=== PATIENT | female | born 1950 | race Caucasian/White ===

== ENCOUNTER 2016-11-06 11:31 | Emergency (ER) | payer MEDICARE, OTHER ==
--- NOTE | 2016-11-06 11:53 | ER Document Report ---
ED Medical Screen (RME) - General Stated Complaint: ABDOMINAL PAIN, VAGINAL DISCHARGE Mode of Arrival: Ambulatory Information source: Patient Notes: 65 y/o F presents to ED c/o intermittently persistent lower abd pain over the last week. Reports last normal BM was > 1 week ago. Denies fever or blood in stool. I have greeted and performed a rapid initial assessment of this patient. A comprehensive ED assessment and evaluation of the patient, analysis of test results and completion of the medical decision making process will be conducted by additional ED providers. - Related Data Allergies/Adverse Reactions: No Known Allergies Allergy (Unverified 11/06/16 11:48) Physical Exam - General General appearance: Appears well, Alert In distress: None - Respiratory Respiratory status: No respiratory distress - Cardiovascular Rhythm: Regular Pulses: Normal: Radial
[2016-11-06 12:13] LABS: ABSOLUTE BASOPHILS # (AUTO) 0.1 10^3/uL (0.0-0.2); ABSOLUTE EOSINOPHILS # (AUTO) 0.1 10^3/uL (0.0-0.6); ABSOLUTE LYMPHOCYTES (AUTO) 1.1 10^3/uL (0.5-4.7); ABSOLUTE MONOCYTES (AUTO) 0.9 10^3/uL (0.1-1.4); ABSOLUTE NEUT (AUTO) 9.1 10^3/uL (1.7-8.2); BASOPHILS % (AUTO) 0.7 % (0-2); EOSINOPHILS % (AUTO) 0.5 % (0-6); HEMATOCRIT 40.7 % (36.0-47.0); HEMOGLOBIN 13.5 g/dL (12.0-15.5); HGB HCT DIFFERENCE -0.2; LYMPHOCYTES % (AUTO) 9.9 % (13-45); MEAN CORPUSCULAR HEMOGLOBIN 28.2 pg (27.0-33.4); MEAN CORPUSCULAR HGB CONC 33.2 g/dL (32.0-36.0); MEAN CORPUSCULAR VOLUME 85 fl (80-97); MONOCYTES % (AUTO) 8.4 % (3-13); RED BLOOD COUNT 4.79 10^6/uL (3.72-5.28); RED CELL DISTRIBUTION WIDTH 13.2 % (11.5-14.0); SEGMENTED NEUTROPHILS % (AUTO) 80.5 % (42-78); WHITE BLOOD COUNT 11.3 10^3/uL (4.0-10.5)
[2016-11-06 12:23] LABS: APPEARANCE,URINE CLEAR; BILIRUBIN,URINE NEGATIVE (NEGATIVE); GLUCOSE, URINE NEGATIVE (NEGATIVE); KETONES,URINE NEGATIVE (NEGATIVE); LEUKOCYTE ESTERASE,URINE NEGATIVE (NEGATIVE); NITRITE,URINE NEGATIVE (NEGATIVE); PROTEIN,URINE NEGATIVE (NEGATIVE); URINE SPECIFIC GRAVITY 1.002; UROBILINOGEN,URINE NEGATIVE mg/dL (<2.0)
--- NOTE | 2016-11-06 12:29 | ER Document Report ---
ED GI/ - General Chief Complaint: Abdominal Pain Stated Complaint: ABDOMINAL PAIN, VAGINAL DISCHARGE Time seen by provider: 12:29 Mode of Arrival: Ambulatory Information source: Patient Notes: 65 yo female with gradual onset LLQ abdominal pain that is getting worse, also passing mucous when trying to have bm, no blood or diarrhea. No fever or chills. No N/V. No rash. No dysuria. No hx kidney stones. Hx diverticulosis on colonscopy. TRAVEL OUTSIDE OF THE [place] IN LAST 30 DAYS: No - Related Data Allergies/Adverse Reactions: No Known Allergies Allergy (Unverified 11/06/16 11:48) Past Medical History - General Information source: Patient - Social History Smoking Status: Never Smoker Chew tobacco use (# tins/day): No Frequency of alcohol use: None Drug Abuse: None Lives with: Family Family History: Reviewed & Not Pertinent Patient has suicidal ideation: No Patient has homicidal ideation: No - Past Medical History Cardiac Medical History: Reports: Hx Hypertension Renal/ Medical History: Denies: Hx Peritoneal Dialysis GI Medical History: Reports: Other - diverticulosis on colonscopy Surgical Hx: Negative Review of Systems - Review of Systems Constitutional: No symptoms reported EENT: No symptoms reported Cardiovascular: No symptoms reported Respiratory: No symptoms reported Gastrointestinal: See HPI Genitourinary: No symptoms reported Female Genitourinary: No symptoms reported Musculoskeletal: No symptoms reported Skin: No symptoms reported Hematologic/Lymphatic: No symptoms reported Neurological/Psychological: No symptoms reported Physical Exam - Vital signs Vitals: Temp Pulse Resp BP Pulse Ox 97.8 F 74 18 204/92 H 98 11/06/16 11:50 11/06/16 11:50 11/06/16 11:50 11/06/16 11:50 11/06/16 11:50 Interpretation: Normal - General General appearance: Appears well, Alert In distress: None - HEENT Head: Normocephalic, Atraumatic Eyes: Normal Pupils: PERRL Neck: Supple - Respiratory Respiratory status: No respiratory distress Chest status: Nontender Breath sounds: Normal Chest palpation: Normal - Cardiovascular Rhythm: Regular Heart sounds: Normal auscultation Murmur: No - Abdominal Inspection: Normal Distension: No distension Bowel sounds: Normal Tenderness: Tender - LLQ Organomegaly: No organomegaly - Back Back: Normal, Nontender. No: CVA tenderness - Extremities General upper extremity: Normal inspection, Nontender, Normal color, Normal ROM , Normal temperature General lower extremity: Normal inspection, Nontender, Normal color, Normal ROM , Normal temperature, Normal weight bearing. No: Lit's sign - Neurological Neuro grossly intact: Yes Cognition: Normal Orientation: AAOx4 [place] Coma Scale Eye Opening: Spontaneous [place] Coma Scale Verbal: Oriented Mel Coma Scale Motor: Obeys Commands Mel Coma Scale Total: 15 Speech: Normal Motor strength normal: LUE, RUE, LLE, RLE Sensory: Normal - Psychological Associated symptoms: Normal affect, Normal mood - Skin Skin Temperature: Warm Skin Moisture: Dry Skin Color: Normal Skin irregularity: negative: Rash Course - Re-evaluation Re-evalutation: 11/06/16 15:58 I have consulted with the supervisory physician per [facility] Guidelines., dr. sweeney for CT scan. 11/06/16 16:13 blood pressure systolic 170 but she will take her htn rx when she gets home, temp 99.3, pulse 73. the CT showed distal sigmoid diverticulitis without abscess and will start her on Cipro and Flagyl. She does not want pain medication offered. Urine 2+ bacteria, 1 wbc, culture added. White count 11.3 no shift. Stool hem negative. chemistry normal. Pt feels better. 11/07/16 12:51 11/07/16 12:52 - Vital Signs Vital signs: Temp Pulse Resp BP Pulse Ox 99.3 F 73 17 170/72 H 96 11/06/16 16:13 11/06/16 16:13 11/06/16 16:13 11/06/16 16:13 11/06/16 16:13 - Laboratory Result Diagrams: 11/06/16 12:00 11/06/16 12:00 Laboratory results interpreted by me: 11/06/16 11/06/16 12:00 12:00 WBC 11.3 H Seg Neutrophils % 80.5 H Lymphocytes % 9.9 L Absolute Neutrophils 9.1 H Creatinine 0.50 L Discharge - Discharge Clinical Impression: Diverticulitis Qualifiers: Diverticulitis site: large intestine Diverticulitis bleeding: without bleeding Diverticulitis complication: without perforation or abscess Qualified Code(s): K57.32 - Diverticulitis of large intestine without perforation or abscess without bleeding Condition: Good Disposition: HOME, SELF-CARE Instructions: Ciprofloxacin ([facility]), Diverticulitis ([facility]), Metronidazole ([facility]) Additional Instructions: to er if worse plenty of fluid No alcohol with the metronidazole Prescriptions: Ciprofloxacin HCl [Cipro 750 mg Tablet] 750 mg PO BID #20 tablet Metronidazole 500 mg PO QID #20 tablet Referrals: CHANEL BARNETT MD [Primary Care Provider] - 11/10/16
[2016-11-06 13:21] LABS: ALANINE AMINOTRANSFERASE 36 U/L (9-52); ALBUMIN 4.1 g/dL (3.5-5.0); ALKALINE PHOSPHATASE 86 U/L (38-126); ANION GAP 12 (5-19); ASPARTATE AMINO TRANSFERASE 33 U/L (14-36); BLOOD UREA NITROGEN 16 mg/dL (7-20); CALCIUM 9.5 mg/dL (8.4-10.2); CARBON DIOXIDE 29 mmol/L (22-30); CHLORIDE 99 mmol/L (98-107); GLUCOSE 98 mg/dL (75-110); LIPASE 23.8 U/L (23-300); POTASSIUM 3.7 mmol/L (3.6-5.0); SODIUM 140.3 mmol/L (137-145); TOTAL PROTEIN 6.8 g/dL (6.3-8.2)
[2016-11-06] MEDS ORDERED: METRONIDAZOLE 500 MG TABLET PO ONE (15:44)
[2016-11-06] MEDS ORDERED: CIPROFLOXACIN HCL 500 MG TABLET PO ONE (15:44)
[2016-11-06] MEDS ORDERED: CIPROFLOXACIN HCL 750 MG TABLET PO ONE (15:51)
[2016-11-06 16:15] VITALS: BP 170/72
== END 2016-11-06 16:15 | disposition home or self-care (01) ==
LOC: ER 11:31
DX: K57.32 Diverticulitis of large intestine without perforation or abscess without bleeding (principal); R10.32 Left lower quadrant pain; I10 Essential (primary) hypertension; Z79.899 Other long term (current) drug therapy
CPT/HCPCS: 99284; 36415; 87086; 83690; 85025; 82272; 80053; 81001; 74177; A9270 ×2; J3490

== ENCOUNTER 2018-12-18 21:30 | Emergency (ER) | payer MEDICARE, OTHER ==
[2018-12-18] MEDS ORDERED: ASPIRIN 81 MG TABLET, CHEWABLE PO ONE (21:33)
--- NOTE | 2018-12-18 21:44 | ER Document Report ---
ED General - General Stated Complaint: HEART PROBLEM Time Seen by Provider: 12/18/18 21:43 Primary Care Provider: DEDE LAWTON MD [ASSOCIATE] - Follow up in 3-5 days Notes: Patient is a 68-year-old female with atrial fibrillation on Eliquis that presents to the emergency department for chief complaint of palpitations. Patient states that the symptoms started earlier this evening, and she was hoping they would go away, but they persisted so she decided to call the ambulance. She has had an episode like this in the past, where she was treated with Cardizem and it improved, EMS did administer 25 mg of IV Cardizem, but she was still tachycardic afterwards, she denies having any associated chest pain, shortness of breath, difficulty breathing, nausea, vomiting or diaphoresis. She is currently taking metoprolol and as mentioned she is on Eliquis as well. No other complaints at this time. She does report recently she had an outpatient potassium 3.6, does not recall any other lab issues. Past Medical History: Atrial fibrillation, hypertension Past Surgical History: Total knee arthroplasty, cholecystectomy, hysterectomy Social History: Admits to occasional alcohol use, denies tobacco or illicit drug use. Family History: Reviewed and noncontributory for presenting illness Allergies: Reviewed, see documented allergy list. REVIEW OF SYSTEMS: Other than noted above, the 12 point review of systems was reviewed with the patient and were negative, all pertinent findings are included in the HPI. PHYSICAL EXAMINATION: Vital signs reviewed, nursing noted reviewed. GENERAL: Obese female, in mild distress, appears uncomfortable but not complaining of any pain HEAD: Atraumatic, normocephalic. EYES: Eyes appear normal, extraocular movements intact, sclera anicteric, conjunctiva are normal. ENT: nares patent, oropharynx clear without exudates. Moist mucous membranes. NECK: Normal range of motion, supple without lymphadenopathy LUNGS: Breath sounds clear to auscultation bilaterally and equal. No wheezes rales or rhonchi. HEART: Heart rate tachycardic, irregular rhythm, no audible murmurs ABDOMEN: Soft, nontender, normoactive bowel sounds. No rebound, guarding, or rigidity. No masses appreciated. EXTREMITIES: Nontender, good range of motion, trace bilateral lower extremity edema NEUROLOGICAL: No focal neurological deficits. Moves all extremities spontaneously Motor and sensory grossly intact on exam. PSYCH: Normal mood, normal affect. SKIN: Warm, Dry, normal turgor, no rashes or lesions noted on exposed skin TRAVEL OUTSIDE OF THE [place] IN LAST 30 DAYS: No - Related Data Allergies/Adverse Reactions: No Known Allergies Allergy (Unverified 11/06/16 11:48) Past Medical History - Social History Smoking Status: Never Smoker Family History: Reviewed & Not Pertinent - Past Medical History Cardiac Medical History: Reports: Hx Hypercholesterolemia, Hx Hypertension Renal/ Medical History: Denies: Hx Peritoneal Dialysis Past Surgical History: Reports: Hx Appendectomy, Hx Cholecystectomy, Hx Hysterectomy, Hx Orthopedic Surgery, Hx Tonsillectomy - Immunizations Hx Diphtheria, Pertussis, Tetanus Vaccination: Yes Physical Exam - Vital signs Vitals: Resp Pulse Ox 16 97 12/18/18 21:45 12/18/18 21:45 Course - Re-evaluation Re-evalutation: Patient seen and examined vital signs reviewed. Laboratory data and imaging were ordered as appropriate for the patient's presenting symptoms and complaint, with consideration of any critical or life threatening conditions that may be associated with their obtained history and exam as noted above. 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 The patient was re-evaluated and was stable and improved Evaluation was most consistent with atrial fibrillation with rapid ventricular response, hypokalemia Results were discussed with the patient at this point, after careful conside ration I feel that that patient can be discharged from the emergency department, the patient was educated treatments and reasons to return to the emergency department based on their presumed diagnosis as noted above, they were advised to followup with a primary care physician in 2-3 days. Patient was agreeable to plan of care. *Note is created using voice recognition software and may contain spelling, syntax or grammatical errors. Laboratory 12/18/18 12/18/18 12/18/18 22:00 22:00 22:00 WBC 8.1 RBC 5.02 Hgb 14.6 Hct 42.6 MCV 85 MCH 29.2 MCHC 34.4 RDW 13.1 Plt Count 207 Seg Neutrophils % 65.3 Lymphocytes % 25.3 Monocytes % 7.4 Eosinophils % 1.1 Basophils % 0.9 Absolute Neutrophils 5.3 Absolute Lymphocytes 2.1 Absolute Monocytes 0.6 Absolute Eosinophils 0.1 Absolute Basophils 0.1 Sodium 138.9 Potassium 3.4 L Chloride 99 Carbon Dioxide 26 Anion Gap 14 BUN 22 H Creatinine 0.57 Est GFR ( Amer) > 60 Est GFR (Non-Af Amer) > 60 Glucose 122 H Calcium 10.4 H Total Bilirubin 0.5 Direct Bilirubin 0.3 Neonat Total Bilirubin Not Reportable Neonat Direct Bilirubin Not Reportable Neonat Indirect Bili Not Reportable AST 34 ALT 23 Alkaline Phosphatase 88 Troponin I < 0.012 Total Protein 7.5 Albumin 4.7 Chest X-Ray 12/18/18 21:33 IMPRESSION: No acute findings. No focal lung consolidation. - Vital Signs Vital signs: Temp Pulse Resp BP Pulse Ox 98.7 F 66 16 141/72 H 98 12/18/18 21:52 12/18/18 22:49 12/18/18 22:02 12/18/18 22:02 12/18/18 21:50 - Laboratory Result Diagrams: 12/18/18 22:00 12/18/18 22:00 Laboratory results interpreted by me: 12/18/18 22:00 Potassium 3.4 L BUN 22 H Glucose 122 H Calcium 10.4 H - EKG Interpretation by Me Additional EKG results interpreted by me: EKG #1 performed at 2142 demonstrates atrial fibrillation with rapid ventricular response with a ventricular rate of 137 bpm, normal axis, QTC 471 ms, there is rate dependent ST depressions in leads V3 through V6, and leads II, III and aVF EKG #2 performed at 2235 demonstrates normal sinus rhythm with a ventricular rate of 67 bpm, normal axis, normal intervals, no evidence of acute ischemia in this EKG, this is compared with her prior EKG performed when she was in atrial fibrillation today. Critical Care Note - Critical Care Note Total time excluding time spent on procedures (mins): 35 Comments: Critical care time 35 minutes exclusive from separate billable procedures for a patient requiring complex medical decision making, and high potential for clinical deterioration. In a patient with atrial fibrillation with rapid ventri cular response requiring IV Cardizem for treatment. Time spent obtaining history from patient or surrogate, discussions with consultants, development of treatment plan with patient or surrogate, evaluation of patient's response to treatment, examination of patient, ordering and performing treatments and interventions, ordering and review of laboratory studies, re-evaluation of patient's condition, ordering and review of radiographic studies and review of old charts Discharge - Discharge Clinical Impression: Atrial fibrillation with rapid ventricular response, Hypokalemia Condition: Stable Disposition: HOME, SELF-CARE Instructions: Atrial Fibrillation ([facility]) Additional Instructions: Please follow-up with your primary care physician, call for an appointment on Thursday, continue to take your previously prescribed medications, and discussed with your primary care physician the potassium supplement you are taking. If you develop any further symptoms or concerns, do not hesitate to return to the emergency department. Referrals: DEDE LAWTON MD [ASSOCIATE] - Follow up in 3-5 days
[2018-12-18] MEDS ORDERED: DILTIAZEM HCL/D5W 125 MG/125 ML RTUINJ IV PRN (21:47)
[2018-12-18 22:12] VITALS: BP 141/72
[2018-12-18 22:16] LABS: ABSOLUTE BASOPHILS # (AUTO) 0.1 10^3/uL (0.0-0.2); ABSOLUTE EOSINOPHILS # (AUTO) 0.1 10^3/uL (0.0-0.6); ABSOLUTE LYMPHOCYTES (AUTO) 2.1 10^3/uL (0.5-4.7); ABSOLUTE MONOCYTES (AUTO) 0.6 10^3/uL (0.1-1.4); ABSOLUTE NEUT (AUTO) 5.3 10^3/uL (1.7-8.2); BASOPHILS % (AUTO) 0.9 % (0-2); EOSINOPHILS % (AUTO) 1.1 % (0-6); HEMATOCRIT 42.6 % (36.0-47.0); HEMOGLOBIN 14.6 g/dL (12.0-15.5); LYMPHOCYTES % (AUTO) 25.3 % (13-45); MEAN CORPUSCULAR HEMOGLOBIN 29.2 pg (27.0-33.4); MEAN CORPUSCULAR HGB CONC 34.4 g/dL (32.0-36.0); MEAN CORPUSCULAR VOLUME 85 fl (80-97); MONOCYTES % (AUTO) 7.4 % (3-13); PLATELET COUNT 207 10^3/uL (150-450); RED BLOOD COUNT 5.02 10^6/uL (3.72-5.28); RED CELL DISTRIBUTION WIDTH 13.1 % (11.5-14.0); SEGMENTED NEUTROPHILS % (AUTO) 65.3 % (42-78); TOTAL CELLS COUNTED % (AUTO) 100 %; WHITE BLOOD COUNT 8.1 10^3/uL (4.0-10.5)
[2018-12-18 22:31] LABS: ALANINE AMINOTRANSFERASE 23 U/L (9-52); ALBUMIN 4.7 g/dL (3.5-5.0); ALKALINE PHOSPHATASE 88 U/L (38-126); ANION GAP 14 (5-19); ASPARTATE AMINO TRANSFERASE 34 U/L (14-36); BILIRUBIN,DIRECT 0.3 mg/dL (0.0-0.4); BILIRUBIN,TOTAL 0.5 mg/dL (0.2-1.3); BLOOD UREA NITROGEN 22 mg/dL (7-20); CALCIUM 10.4 mg/dL (8.4-10.2); CARBON DIOXIDE 26 mmol/L (22-30); CHLORIDE 99 mmol/L (98-107); GLUCOSE 122 mg/dL (75-110); POTASSIUM 3.4 mmol/L (3.6-5.0); SODIUM 138.9 mmol/L (137-145); TOTAL PROTEIN 7.5 g/dL (6.3-8.2)
[2018-12-18] MEDS ORDERED: POTASSIUM CHLORIDE 10 MEQ CAPSULE.ER PO ONE (22:38)
--- NOTE | 2018-12-18 22:45 | EKG REPORT ---
SEVERITY:- NORMAL ECG - SINUS RHYTHM : Confirmed by: Dimas Talamantes MD 18-Dec-2018 22:44:43
--- NOTE | 2018-12-18 22:46 | EKG REPORT ---
SEVERITY:- ABNORMAL ECG - ATRIAL FIBRILLATION NONSPECIFIC REPOL ABNORMALITY, DIFFUSE LEADS : Confirmed by: Dimas Talamantes MD 18-Dec-2018 22:45:05
[2018-12-18] MEDS ORDERED: METOPROLOL TARTRATE 25 MG TABLET PO ONE (22:54)
--- NOTE | 2018-12-18 23:37 | RADIOLOGY REPORT (SQ) ---
EXAM DESCRIPTION: XR CHEST 1 VIEW COMPLETED DATE/TME: 12/18/2018 21:33 CLINICAL HISTORY: 68 years, Female, CP Comparison: None FINDINGS: No focal lung consolidation. No pleural effusion. No pneumothorax. Cardiac and mediastinal silhouette is unremarkable. No acute osseous abnormality. Soft tissues are unremarkable. IMPRESSION: No acute findings. No focal lung consolidation.
== END 2018-12-18 23:12 | disposition home or self-care (01) ==
LOC: ER 21:30
DX: I48.91 Unspecified atrial fibrillation (principal); E87.6 Hypokalemia; I10 Essential (primary) hypertension; Z79.899 Other long term (current) drug therapy; Z79.01 Long term (current) use of anticoagulants; E66.9 Obesity, unspecified
CPT/HCPCS: 93005; 99291; 96365; 36415; 85025; 80053; 84484; 71045; 93010; A9270 ×2; J3490